=== PATIENT | female | born 1995 | race Caucasian/White ===

== ENCOUNTER 2024-02-19 14:01 | Outpatient (CLI) | payer BC, SELFPAY ==
--- NOTE | ~2024-02-19 | US_ITS ---
US pelvic complete w TV Ordering provider: Shivani Yan, HOWARD History: . Excessive frequent menstruation w regular cycle . Comparison: None. Technique: Transabdominal and endovaginal ultrasound of the pelvis (Doppler ultrasound interrogation techniques used as needed for this exam.) FINDINGS: CERVIX: Normal. UTERUS: Measures 9x 3.7x 5.2 cm in length which is within normal limits and is anteverted. No myomet rial masses. ENDOMETRIUM: Normal in thickness measuring 14 mm. No endometrial masses, cysts or fluid. CUL DE SAC: No free fluid. RIGHT OVARY: Normal in size measuring 4.3x 2.9x 4 cm. Normal echotexture. Doppler vascular flow prese nt. Multiple follicles are noted. LEFT OVARY: Normal in size measuring 3.9x 2.6x 3.7 cm. Normal echotexture. Doppler vascular flow pres ent. Multiple follicles noted. ADNEXA: Normal. No mass. IMPRESSION: Bilateral ovarian follicles. Polycystic ovaries should be considered. Slightly thickened endometrium. Clinical menstrual correlation advised. Otherwise, normal pelvic ultrasound. Reviewed, dictated and finalized at location A. IMPRESSION: Bilateral ovarian follicles. Polycystic ovaries should be considered. Slightly thickened endometrium. Clinical menstrual correlation advised. Otherwise, rigo l pelvic ultrasound.
== END 2024-02-19 14:02 | disposition home or self-care (01) ==
PROVIDERS: PCP Nurse Practitioner; Visit Provider Nurse Practitioner
DX: N92.0 Excessive and frequent menstruation with regular cycle (principal); N92.6 Irregular menstruation, unspecified; E28.2 Polycystic ovarian syndrome
CPT/HCPCS: 76830; 76856